=== PATIENT | male | born 1935 | race Caucasian/White ===

== ENCOUNTER 2016-08-19 | Outpatient (CLI) | payer MEDICARE | END 2016-08-19 05:49 | disposition short-term general hospital (02) | CPT/HCPCS: A0425; A0429 ==

== ENCOUNTER 2017-09-06 04:40 | Outpatient (CLI) | payer MEDICARE | END 2017-09-06 23:59 | disposition critical access hospital (66) | LOC: EMS 04:40 | PROVIDERS: ATTEND Surgery | DX: R47.81 Slurred speech (principal); R25.1 Tremor, unspecified; R53.1 Weakness; W08.XXXA Fall from other furniture, initial encounter; Y92.008 Other place in unspecified non-institutional (private) residence as the place of occurrence of the external cause | CPT/HCPCS: A0425; A0429 ==